=== PATIENT | male | born 1990 | race Caucasian/White ===

== ENCOUNTER 2016-10-23 11:52 | Emergency (ER) | payer BC, OTHER ==
[~2016-10-23] VITALS: Ht 167.6 cm; Wt 68.2 kg
[~2016-10-23 11:52] MED LIST: ALPR0.25 PO
[2016-10-23] MEDS ORDERED: DIAZEPAM 5 MG TABLET ONE (12:06)
[2016-10-23] MEDS ORDERED: OXYcodone/APAP 5/325MG TABLET ONE (12:07)
[2016-10-23] MEDS ORDERED: KETOROLAC 30 MG/1 ML ONE (12:07)
[2016-10-23] MEDS ORDERED: OXYcodone/APAP 5/325MG TABLET PO ONE (12:30)
[2016-10-23] MEDS ORDERED: DIAZEPAM 5 MG TABLET PO ONE (12:30)
[2016-10-23] MEDS ORDERED: KETOROLAC 30 MG/1 ML IM ONE (12:30)
[2016-10-23 13:15] VITALS: BP 117/78
== END 2016-10-23 13:34 | disposition home or self-care (01) ==
LOC: ED 13:15
DX: S29.012A Strain of muscle and tendon of back wall of thorax, initial encounter (principal); S39.012A Strain of muscle, fascia and tendon of lower back, initial encounter; W17.89XA Other fall from one level to another, initial encounter; Y93.89 Activity, other specified; Y92.89 Other specified places as the place of occurrence of the external cause; Y99.8 Other external cause status
CPT/HCPCS: 72072; 72110; 96372; 99284; J1885